=== PATIENT | male | born 1945 ===

== ENCOUNTER 2020-10-24 13:10 | Inpatient (IN) ==
[2020-10-25] MEDS ORDERED: [UNRECOGNIZED DRUG - OTHER] PO PRN (22:33)
[2020-10-25] MEDS: carvediloL 6.25 MG TABLET PO SCH (23:55)
[2020-10-25] MEDS: QUEtiapine Fumarate 25 MG TABLET PO SCH (23:55)
[2020-10-25] MEDS: Melatonin 3 MG TABLET PO SCH (23:55)
[2020-10-26 00:17] LABS: INR 1.4; Prothrombin Time 15.7 Seconds (9.4-12.1)
[2020-10-26 06:03] LABS: Basophils # 0.1 K/mcL (0.0-0.2); Eosinophils # 0.2 K/mcL (0.0-0.6); Eosinophils % 4.5 %; Hematocrit 44.2 % (37.5-50.1); Hemoglobin 14.7 g/dL (12.9-16.9); Immature Granulocytes % 0.4 % (0-4); Lymphocytes # 1.1 K/mcL (0.6-4.6); Lymphocytes % 21.4 %; Mean Corpuscular HGB Conc 33.3 g/dL (31.6-35.5); Mean Corpuscular Volume 90.2 fL (83.0-100.0); Mean Platelet Volume 11.8 fL (9.4-12.4); Monocytes # 0.5 K/mcL (0.0-1.3); Monocytes % 9.6 %; Neutrophils # 3.1 K/mcL (1.6-8.9); Segmented Neutrophils % 63.1 %; White Blood Count 4.9 K/mcL (4.3-11.1)
[2020-10-26 06:58] LABS: Platelet Count 92 K/mcL (140-400)
[2020-10-26 07:12] LABS: BUN/Creatinine Ratio 19 (6-26); Blood Urea Nitrogen 18 mg/dL (8-23); Calcium 9.4 mg/dL (8.6-10.3); Carbon Dioxide 25 mEq/L (23-29); Chloride 102 mEq/L (98-107); Glucose 94 mg/dL (70-105); Osmolality,Calculated 284 (280-300); Potassium 3.6 mEq/L (3.5-5.1); Sodium 136 mEq/L (136-145); eGFR For African Americans > 60 (> 60); eGFR For Non-African Americans > 60 (> 60)
[2020-10-26] MEDS: Sennosides/Docusate Sodium TABLET PO SCH ×2 (09:58→20:57)
[2020-10-26] MEDS: polyethylene glycoL 3350 17 GM POWD.PACK PO SCH (09:59)
[2020-10-26] MEDS: *HR* Enoxaparin 100 MG/ML SYRINGE SQ SCH ×2 (09:59→20:52)
[2020-10-26] MEDS: Cyanocobalamin (B-12) 1,000 MCG TABLET PO SCH (10:00)
[2020-10-26] MEDS: Magnesium Oxide 400 MG TABLET PO SCH (10:00)
[2020-10-26] MEDS: lisinopriL 20 MG TABLET PO SCH (10:00)
[2020-10-26] MEDS: Multivit/Ca/Min/Fe/FA 1 TAB TABLET PO SCH (10:00)
[2020-10-26] MEDS: carvediloL 6.25 MG TABLET PO SCH ×2 (10:00→18:29)
[2020-10-26] MEDS: Fluticasone Propionate Nasal 50 MCG/SPRAY BOTTLE NS SCH (13:37)
[2020-10-26] MEDS: amLODIPine 5 MG TABLET PO SCH (15:41)
[2020-10-26] MEDS ORDERED: *HR* Warfarin 5 MG TABLET PO ONE (18:00)
[2020-10-26] MEDS ORDERED: Warfarin perPT PO PRN (18:00)
[2020-10-26] MEDS ORDERED: *HR* Warfarin 5 MG TABLET PO SCH (18:00)
[2020-10-26] MEDS ORDERED: cloNIDine HCL 0.1 MG TABLET PO ONE (18:37)
[2020-10-26] MEDS ORDERED: carvediloL 6.25 MG TABLET PO ONE (19:15)
[2020-10-26] MEDS: Melatonin 3 MG TABLET PO SCH (20:51)
[2020-10-26] MEDS: QUEtiapine Fumarate 25 MG TABLET PO SCH (20:54)
[2020-10-27 06:49] LABS: Basophils % 0.8 %; Eosinophils # 0.2 K/mcL (0.0-0.6); Eosinophils % 3.6 %; Hemoglobin 14.6 g/dL (12.9-16.9); Immature Granulocytes % 0.4 % (0-4); Lymphocytes # 1.3 K/mcL (0.6-4.6); Lymphocytes % 24.5 %; Mean Corpuscular HGB Conc 33.2 g/dL (31.6-35.5); Mean Corpuscular Hemoglobin 30.1 pg (28.0-33.3); Mean Corpuscular Volume 90.7 fL (83.0-100.0); Mean Platelet Volume 11.3 fL (9.4-12.4); Monocytes # 0.6 K/mcL (0.0-1.3); Monocytes % 11.3 %; Neutrophils # 3.1 K/mcL (1.6-8.9); Platelet Count 179 K/mcL (140-400); Red Blood Count 4.85 M/mcL (4.19-5.50); Segmented Neutrophils % 59.4 %; White Blood Count 5.2 K/mcL (4.3-11.1)
[2020-10-27 06:52] LABS: INR 1.6; Prothrombin Time 17.5 Seconds (9.4-12.1)
[2020-10-27 07:06] LABS: BUN/Creatinine Ratio 23 (6-26); Blood Urea Nitrogen 20 mg/dL (8-23); Calcium 9.4 mg/dL (8.6-10.3); Carbon Dioxide 27 mEq/L (23-29); Chloride 101 mEq/L (98-107); Glucose 106 mg/dL (70-105); Osmolality,Calculated 285 (280-300); Potassium 3.8 mEq/L (3.5-5.1); Sodium 136 mEq/L (136-145); eGFR For African Americans > 60 (> 60); eGFR For Non-African Americans > 60 (> 60)
[2020-10-27] MEDS: Sennosides/Docusate Sodium TABLET PO SCH ×2 (09:24→21:09)
[2020-10-27] MEDS: Multivit/Ca/Min/Fe/FA 1 TAB TABLET PO SCH (09:24)
[2020-10-27] MEDS: Magnesium Oxide 400 MG TABLET PO SCH (09:24)
[2020-10-27] MEDS: carvediloL 6.25 MG TABLET PO SCH ×2 (09:24→16:57)
[2020-10-27] MEDS: lisinopriL 20 MG TABLET PO SCH (09:25)
[2020-10-27] MEDS: amLODIPine 5 MG TABLET PO SCH (09:25)
[2020-10-27] MEDS: polyethylene glycoL 3350 17 GM POWD.PACK PO SCH (09:25)
[2020-10-27] MEDS: *HR* Enoxaparin 100 MG/ML SYRINGE SQ SCH ×2 (09:26→21:08)
[2020-10-27] MEDS: Cyanocobalamin (B-12) 1,000 MCG TABLET PO SCH (09:27)
[2020-10-27] MEDS: Fluticasone Propionate Nasal 50 MCG/SPRAY BOTTLE NS SCH (09:28)
[2020-10-27] MEDS ORDERED: amLODIPine 5 MG TABLET PO ONE (11:17)
[2020-10-27] MEDS ORDERED: *HR* Warfarin 5 MG TABLET PO ONE (18:00)
[2020-10-27] MEDS: Melatonin 3 MG TABLET PO SCH (21:08)
[2020-10-27] MEDS: QUEtiapine Fumarate 25 MG TABLET PO SCH (21:09)
[2020-10-28 05:14] LABS: INR 1.7; Prothrombin Time 19.4 Seconds (9.4-12.1)
[2020-10-28] MEDS: *HR* Enoxaparin 100 MG/ML SYRINGE SQ SCH ×2 (08:37→21:00)
[2020-10-28] MEDS: Multivit/Ca/Min/Fe/FA 1 TAB TABLET PO SCH (08:37)
[2020-10-28] MEDS: Magnesium Oxide 400 MG TABLET PO SCH (08:38)
[2020-10-28] MEDS: Sennosides/Docusate Sodium TABLET PO SCH ×2 (08:38→20:58)
[2020-10-28] MEDS: lisinopriL 20 MG TABLET PO SCH (08:38)
[2020-10-28] MEDS: polyethylene glycoL 3350 17 GM POWD.PACK PO SCH (08:38)
[2020-10-28] MEDS: Cyanocobalamin (B-12) 1,000 MCG TABLET PO SCH (08:38)
[2020-10-28] MEDS: amLODIPine 5 MG TABLET PO SCH (08:38)
[2020-10-28] MEDS: carvediloL 6.25 MG TABLET PO SCH ×2 (08:38→17:20)
[2020-10-28] MEDS: Fluticasone Propionate Nasal 50 MCG/SPRAY BOTTLE NS SCH (08:44)
[2020-10-28] MEDS ORDERED: *HR* Warfarin 5 MG TABLET PO ONE (18:00)
[2020-10-28] MEDS: Melatonin 3 MG TABLET PO SCH (20:59)
[2020-10-28] MEDS: QUEtiapine Fumarate 25 MG TABLET PO SCH (20:59)
[2020-10-29 05:49] LABS: INR 2.1; Prothrombin Time 23.5 Seconds (9.4-12.1)
[2020-10-29] MEDS: *HR* Enoxaparin 100 MG/ML SYRINGE SQ SCH ×2 (09:16→21:30)
[2020-10-29] MEDS: Multivit/Ca/Min/Fe/FA 1 TAB TABLET PO SCH (09:30)
[2020-10-29] MEDS: lisinopriL 20 MG TABLET PO SCH (09:30)
[2020-10-29] MEDS: Sennosides/Docusate Sodium TABLET PO SCH ×2 (09:30→21:30)
[2020-10-29] MEDS: polyethylene glycoL 3350 17 GM POWD.PACK PO SCH (09:30)
[2020-10-29] MEDS: Cyanocobalamin (B-12) 1,000 MCG TABLET PO SCH (09:31)
[2020-10-29] MEDS: carvediloL 6.25 MG TABLET PO SCH ×2 (09:31→17:10)
[2020-10-29] MEDS: Magnesium Oxide 400 MG TABLET PO SCH (09:31)
[2020-10-29] MEDS: amLODIPine 5 MG TABLET PO SCH (09:31)
[2020-10-29] MEDS: Fluticasone Propionate Nasal 50 MCG/SPRAY BOTTLE NS SCH (09:32)
[2020-10-29] MEDS ORDERED: *HR* Warfarin 5 MG TABLET PO ONE (18:00)
[2020-10-29] MEDS: QUEtiapine Fumarate 25 MG TABLET PO SCH (21:30)
[2020-10-29] MEDS: Melatonin 3 MG TABLET PO SCH (21:30)
[2020-10-30 05:23] LABS: INR 2.6
[2020-10-30] MEDS: Cyanocobalamin (B-12) 1,000 MCG TABLET PO SCH (09:03)
[2020-10-30] MEDS: Magnesium Oxide 400 MG TABLET PO SCH (09:03)
[2020-10-30] MEDS: amLODIPine 5 MG TABLET PO SCH (09:03)
[2020-10-30] MEDS: Sennosides/Docusate Sodium TABLET PO SCH ×2 (09:04→20:34)
[2020-10-30] MEDS: Fluticasone Propionate Nasal 50 MCG/SPRAY BOTTLE NS SCH (09:04)
[2020-10-30] MEDS: *HR* Enoxaparin 100 MG/ML SYRINGE SQ SCH (09:04)
[2020-10-30] MEDS: Multivit/Ca/Min/Fe/FA 1 TAB TABLET PO SCH (09:04)
[2020-10-30] MEDS: lisinopriL 20 MG TABLET PO SCH (09:04)
[2020-10-30] MEDS: carvediloL 6.25 MG TABLET PO SCH ×2 (09:04→17:48)
[2020-10-30] MEDS: polyethylene glycoL 3350 17 GM POWD.PACK PO SCH (09:07)
[2020-10-30] MEDS ORDERED: *HR* Warfarin 1 MG TABLET PO ONE (18:00)
[2020-10-30] MEDS: QUEtiapine Fumarate 25 MG TABLET PO SCH (20:34)
[2020-10-30] MEDS: Melatonin 3 MG TABLET PO SCH (20:34)
[2020-10-31 04:55] LABS: Basophils # 0.1 K/mcL (0.0-0.2); Basophils % 1.1 %; Eosinophils # 0.2 K/mcL (0.0-0.6); Eosinophils % 3.8 %; Hematocrit 46.9 % (37.5-50.1); Hemoglobin 15.2 g/dL (12.9-16.9); Immature Granulocytes % 0.5 % (0-4); Lymphocytes # 1.4 K/mcL (0.6-4.6); Lymphocytes % 32.4 %; Mean Corpuscular HGB Conc 32.4 g/dL (31.6-35.5); Mean Corpuscular Hemoglobin 30.3 pg (28.0-33.3); Mean Corpuscular Volume 93.6 fL (83.0-100.0); Mean Platelet Volume 11.4 fL (9.4-12.4); Monocytes # 0.6 K/mcL (0.0-1.3); Monocytes % 13.3 %; Neutrophils # 2.2 K/mcL (1.6-8.9); Platelet Count 200 K/mcL (140-400); Red Blood Count 5.01 M/mcL (4.19-5.50); Segmented Neutrophils % 48.9 %; White Blood Count 4.4 K/mcL (4.3-11.1)
[2020-10-31 04:59] LABS: INR 2.5; Prothrombin Time 28.1 Seconds (9.4-12.1)
[2020-10-31 05:12] LABS: BUN/Creatinine Ratio 28 (6-26); Blood Urea Nitrogen 35 mg/dL (8-23); Calcium 9.8 mg/dL (8.6-10.3); Carbon Dioxide 27 mEq/L (23-29); Chloride 102 mEq/L (98-107); Glucose 92 mg/dL (70-105); Osmolality,Calculated 292 (280-300); Potassium 4.3 mEq/L (3.5-5.1); Sodium 137 mEq/L (136-145); eGFR For African Americans > 60 (> 60); eGFR For Non-African Americans 56 (> 60)
[2020-10-31] MEDS: Cyanocobalamin (B-12) 1,000 MCG TABLET PO SCH (07:59)
[2020-10-31] MEDS: Sennosides/Docusate Sodium TABLET PO SCH ×2 (07:59→22:05)
[2020-10-31] MEDS: Multivit/Ca/Min/Fe/FA 1 TAB TABLET PO SCH (08:00)
[2020-10-31] MEDS: polyethylene glycoL 3350 17 GM POWD.PACK PO SCH (08:00)
[2020-10-31] MEDS: amLODIPine 5 MG TABLET PO SCH (08:00)
[2020-10-31] MEDS: lisinopriL 20 MG TABLET PO SCH (08:00)
[2020-10-31] MEDS: Magnesium Oxide 400 MG TABLET PO SCH (08:00)
[2020-10-31] MEDS: carvediloL 6.25 MG TABLET PO SCH ×2 (08:00→18:09)
[2020-10-31] MEDS: Fluticasone Propionate Nasal 50 MCG/SPRAY BOTTLE NS SCH (08:01)
[2020-10-31] MEDS: Mag Hydrox/Al Hydrox/Simeth 30 ML UDC PO PRN (10:53)
[2020-10-31] MEDS ORDERED: *HR* Warfarin 4 MG TABLET PO ONE (18:00)
[2020-10-31] MEDS: QUEtiapine Fumarate 100 MG TABLET PO SCH (22:05)
[2020-10-31] MEDS: levoFLOXacin 750 MG TABLET PO SCH (22:05)
[2020-11-01 06:23] LABS: INR 2.3
[2020-11-01] MEDS: Sennosides/Docusate Sodium TABLET PO SCH ×2 (08:33→20:52)
[2020-11-01] MEDS: amLODIPine 5 MG TABLET PO SCH (08:33)
[2020-11-01] MEDS: Multivit/Ca/Min/Fe/FA 1 TAB TABLET PO SCH (08:33)
[2020-11-01] MEDS: lisinopriL 20 MG TABLET PO SCH (08:33)
[2020-11-01] MEDS: carvediloL 6.25 MG TABLET PO SCH ×2 (08:33→16:45)
[2020-11-01] MEDS: Magnesium Oxide 400 MG TABLET PO SCH (08:33)
[2020-11-01] MEDS: polyethylene glycoL 3350 17 GM POWD.PACK PO SCH (08:34)
[2020-11-01] MEDS: Fluticasone Propionate Nasal 50 MCG/SPRAY BOTTLE NS SCH (08:34)
[2020-11-01] MEDS: Cyanocobalamin (B-12) 1,000 MCG TABLET PO SCH (08:34)
[2020-11-01] MEDS ORDERED: *HR* Warfarin 4 MG TABLET PO ONE (18:00)
[2020-11-01] MEDS: QUEtiapine Fumarate 100 MG TABLET PO SCH (20:52)
[2020-11-01] MEDS: levoFLOXacin 750 MG TABLET PO SCH (20:52)
[2020-11-02 08:14] LABS: INR 2.3; Prothrombin Time 25.4 Seconds (9.4-12.1)
[2020-11-02 08:16] LABS: Basophils # 0.1 K/mcL (0.0-0.2); Basophils % 1.1 %; Eosinophils # 0.2 K/mcL (0.0-0.6); Eosinophils % 4.1 %; Hematocrit 48.4 % (37.5-50.1); Hemoglobin 15.7 g/dL (12.9-16.9); Immature Granulocytes % 0.5 % (0-4); Mean Corpuscular HGB Conc 32.4 g/dL (31.6-35.5); Mean Corpuscular Hemoglobin 30.3 pg (28.0-33.3); Mean Corpuscular Volume 93.3 fL (83.0-100.0); Mean Platelet Volume 10.6 fL (9.4-12.4); Monocytes # 0.5 K/mcL (0.0-1.3); Neutrophils # 2.7 K/mcL (1.6-8.9); Platelet Count 216 K/mcL (140-400); Red Blood Count 5.19 M/mcL (4.19-5.50); Red Cell Distribution Width 15.1 % (11.5-14.5); Segmented Neutrophils % 60.3 %; White Blood Count 4.4 K/mcL (4.3-11.1)
[2020-11-02 08:29] LABS: Albumin 3.9 g/dL (3.5-5.7); Albumin/Globulin Ratio 1.6 (1.1-2.2); Bilirubin,Total 0.5 mg/dL (0.3-1.0); Calcium 10.1 mg/dL (8.6-10.3); Globulin 2.5 g/dL (2.4-3.5); Potassium 4.4 mEq/L (3.5-5.1); Total Protein 6.4 g/dL (6.4-8.9)
[2020-11-02] MEDS ORDERED: 0.9 % Sodium Chloride 1,000 ML IV ONE (08:50)
[2020-11-02] MEDS ORDERED: amLODIPine 5 MG TABLET PO SCH (09:01)
[2020-11-02] MEDS: Cyanocobalamin (B-12) 1,000 MCG TABLET PO SCH (09:59)
[2020-11-02] MEDS: Sennosides/Docusate Sodium TABLET PO SCH ×2 (09:59→20:39)
[2020-11-02] MEDS: carvediloL 6.25 MG TABLET PO SCH ×2 (09:59→17:11)
[2020-11-02] MEDS: Fluticasone Propionate Nasal 50 MCG/SPRAY BOTTLE NS SCH (09:59)
[2020-11-02] MEDS: lisinopriL 20 MG TABLET PO SCH (09:59)
[2020-11-02] MEDS: Multivit/Ca/Min/Fe/FA 1 TAB TABLET PO SCH (09:59)
[2020-11-02] MEDS: polyethylene glycoL 3350 17 GM POWD.PACK PO SCH (09:59)
[2020-11-02] MEDS: cefTRIAXone 1,000 MG in Water for inj. (sterile) 10 ML IVP SCH (11:58)
[2020-11-02] MEDS: Magnesium Oxide 400 MG TABLET PO SCH (11:59)
[2020-11-02] MEDS: amLODIPine 5 MG TABLET PO SCH (12:26)
[2020-11-02] MEDS ORDERED: *HR* Warfarin 4 MG TABLET PO ONE (18:00)
[2020-11-02 20:22] LABS: Hepatitis B Surface Antigen Nonreactive (Nonreactive)
[2020-11-02] MEDS: QUEtiapine Fumarate 100 MG TABLET PO SCH (20:39)
[2020-11-02 20:51] LABS: Hepatitis B Core IgM Nonreactive (Nonreactive)
[2020-11-02 20:52] LABS: Hepatitis A Antibody IgM Nonreactive (Nonreactive); Hepatitis C Virus Antibody Nonreactive (Nonreactive)
[2020-11-03 08:41] LABS: Basophils # 0.1 K/mcL (0.0-0.2); Basophils % 1.3 %; Eosinophils # 0.2 K/mcL (0.0-0.6); Eosinophils % 3.8 %; Hematocrit 45.6 % (37.5-50.1); Hemoglobin 15.1 g/dL (12.9-16.9); Immature Granulocytes % 0.4 % (0-4); Lymphocytes # 1.1 K/mcL (0.6-4.6); Lymphocytes % 23.8 %; Mean Corpuscular HGB Conc 33.1 g/dL (31.6-35.5); Mean Corpuscular Hemoglobin 30.8 pg (28.0-33.3); Mean Corpuscular Volume 92.9 fL (83.0-100.0); Mean Platelet Volume 10.8 fL (9.4-12.4); Monocytes # 0.5 K/mcL (0.0-1.3); Monocytes % 10.2 %; Neutrophils # 2.7 K/mcL (1.6-8.9); Platelet Count 191 K/mcL (140-400); Red Blood Count 4.91 M/mcL (4.19-5.50); Red Cell Distribution Width 15.1 % (11.5-14.5); Segmented Neutrophils % 60.5 %; White Blood Count 4.5 K/mcL (4.3-11.1)
[2020-11-03 09:08] LABS: INR 2.1; Prothrombin Time 23.7 Seconds (9.4-12.1)
[2020-11-03] MEDS: carvediloL 6.25 MG TABLET PO SCH ×2 (09:27→17:36)
[2020-11-03] MEDS: lisinopriL 20 MG TABLET PO SCH (09:27)
[2020-11-03] MEDS: Sennosides/Docusate Sodium TABLET PO SCH ×2 (09:27→20:06)
[2020-11-03] MEDS: Magnesium Oxide 400 MG TABLET PO SCH (09:27)
[2020-11-03] MEDS: Multivit/Ca/Min/Fe/FA 1 TAB TABLET PO SCH (09:27)
[2020-11-03] MEDS: Cyanocobalamin (B-12) 1,000 MCG TABLET PO SCH (09:27)
[2020-11-03] MEDS: polyethylene glycoL 3350 17 GM POWD.PACK PO SCH (09:28)
[2020-11-03] MEDS: cefTRIAXone 1,000 MG in Water for inj. (sterile) 10 ML IVP SCH (09:28)
[2020-11-03] MEDS: Fluticasone Propionate Nasal 50 MCG/SPRAY BOTTLE NS SCH (09:38)
[2020-11-03 14:22] LABS: Albumin 3.8 g/dL (3.5-5.7); Albumin/Globulin Ratio 1.7 (1.1-2.2); Bilirubin,Total 0.4 mg/dL (0.3-1.0); Calcium 9.9 mg/dL (8.6-10.3); Globulin 2.3 g/dL (2.4-3.5); Potassium 4.4 mEq/L (3.5-5.1); Total Protein 6.1 g/dL (6.4-8.9)
[2020-11-03] MEDS ORDERED: *HR* Warfarin 5 MG TABLET PO ONE (18:00)
[2020-11-03] MEDS: QUEtiapine Fumarate 100 MG TABLET PO SCH (20:06)
[2020-11-04 05:02] LABS: Basophils # 0.1 K/mcL (0.0-0.2); Basophils % 1.1 %; Eosinophils # 0.2 K/mcL (0.0-0.6); Eosinophils % 3.9 %; Hematocrit 45.1 % (37.5-50.1); Hemoglobin 14.5 g/dL (12.9-16.9); Immature Granulocytes % 0.4 % (0-4); Lymphocytes # 1.5 K/mcL (0.6-4.6); Lymphocytes % 32.1 %; Mean Corpuscular HGB Conc 32.2 g/dL (31.6-35.5); Mean Corpuscular Hemoglobin 30.2 pg (28.0-33.3); Mean Platelet Volume 10.9 fL (9.4-12.4); Monocytes # 0.5 K/mcL (0.0-1.3); Monocytes % 10.7 %; Neutrophils # 2.4 K/mcL (1.6-8.9); Platelet Count 191 K/mcL (140-400); Segmented Neutrophils % 51.8 %; White Blood Count 4.6 K/mcL (4.3-11.1)
[2020-11-04 05:05] LABS: INR 2.1; Prothrombin Time 23.2 Seconds (9.4-12.1)
[2020-11-04 05:16] LABS: Alanine Aminotransferase 66 Units/L (7-52); Albumin 3.6 g/dL (3.5-5.7); Albumin/Globulin Ratio 1.6 (1.1-2.2); Alkaline Phosphatase 82 Units/L (34-104); Aspartate Amino Transferase 32 Units/L (13-39); BUN/Creatinine Ratio 25 (6-26); Bilirubin,Direct 0.1 mg/dL (0.0-0.2); Bilirubin,Indirect 0.3 mg/dL (0.0-1.0); Bilirubin,Total 0.4 mg/dL (0.3-1.0); Blood Urea Nitrogen 32 mg/dL (8-23); Calcium 9.8 mg/dL (8.6-10.3); Carbon Dioxide 25 mEq/L (23-29); Chloride 105 mEq/L (98-107); Globulin 2.2 g/dL (2.4-3.5); Glucose 100 mg/dL (70-105); Osmolality,Calculated 291 (280-300); Sodium 137 mEq/L (136-145); Total Protein 5.8 g/dL (6.4-8.9); eGFR For African Americans > 60 (> 60); eGFR For Non-African Americans 56 (> 60)
[2020-11-04] MEDS: cefTRIAXone 1,000 MG in Water for inj. (sterile) 10 ML IVP SCH (08:23)
[2020-11-04] MEDS: carvediloL 6.25 MG TABLET PO SCH ×2 (08:24→17:03)
[2020-11-04] MEDS: Fluticasone Propionate Nasal 50 MCG/SPRAY BOTTLE NS SCH (08:24)
[2020-11-04] MEDS: lisinopriL 20 MG TABLET PO SCH (08:24)
[2020-11-04] MEDS: Multivit/Ca/Min/Fe/FA 1 TAB TABLET PO SCH (08:24)
[2020-11-04] MEDS: Cyanocobalamin (B-12) 1,000 MCG TABLET PO SCH (08:24)
[2020-11-04] MEDS: Magnesium Oxide 400 MG TABLET PO SCH (08:24)
[2020-11-04] MEDS: Sennosides/Docusate Sodium TABLET PO SCH ×2 (08:24→20:10)
[2020-11-04] MEDS: polyethylene glycoL 3350 17 GM POWD.PACK PO SCH (08:24)
[2020-11-04 14:38] LABS: Bilirubin,Urine Negative (Negative); Blood,Urine Negative (Negative); Clarity,Urine Clear (Clear); Color,Urine Yellow (Yellow); Glucose,Urine (UA) Normal (Normal); Ketones,Urine Negative (Negative); Leukocyte Esterase,Urine Negative (Negative); Nitrite,Urine Negative (Negative); Protein,Urine Trace mg/dL (Neg-Trace); Specific Gravity,Urine 1.025 (1.010-1.025); Urobilinogen,Urine Normal (Normal)
[2020-11-04] MEDS ORDERED: *HR* Warfarin 5 MG TABLET PO ONE (18:00)
[2020-11-04] MEDS: QUEtiapine Fumarate 100 MG TABLET PO SCH (20:10)
[2020-11-05 05:56] LABS: Basophils # 0.1 K/mcL (0.0-0.2); Basophils % 1.1 %; Eosinophils # 0.2 K/mcL (0.0-0.6); Eosinophils % 4.5 %; Hematocrit 44.6 % (37.5-50.1); Hemoglobin 14.8 g/dL (12.9-16.9); INR 2.2; Immature Granulocytes % 0.4 % (0-4); Lymphocytes # 1.6 K/mcL (0.6-4.6); Lymphocytes % 33.7 %; Mean Corpuscular HGB Conc 33.2 g/dL (31.6-35.5); Mean Corpuscular Hemoglobin 30.6 pg (28.0-33.3); Mean Corpuscular Volume 92.3 fL (83.0-100.0); Mean Platelet Volume 11.6 fL (9.4-12.4); Monocytes # 0.5 K/mcL (0.0-1.3); Neutrophils # 2.4 K/mcL (1.6-8.9); Platelet Count 193 K/mcL (140-400); Prothrombin Time 24.3 Seconds (9.4-12.1); Red Blood Count 4.83 M/mcL (4.19-5.50); Red Cell Distribution Width 14.9 % (11.5-14.5); Segmented Neutrophils % 50.3 %; White Blood Count 4.7 K/mcL (4.3-11.1)
[2020-11-05 06:08] LABS: Alanine Aminotransferase 63 Units/L (7-52); Albumin 3.6 g/dL (3.5-5.7); Albumin/Globulin Ratio 1.6 (1.1-2.2); Alkaline Phosphatase 84 Units/L (34-104); Aspartate Amino Transferase 35 Units/L (13-39); BUN/Creatinine Ratio 22 (6-26); Bilirubin,Total 0.5 mg/dL (0.3-1.0); Blood Urea Nitrogen 28 mg/dL (8-23); Calcium 9.9 mg/dL (8.6-10.3); Carbon Dioxide 25 mEq/L (23-29); Chloride 104 mEq/L (98-107); Globulin 2.2 g/dL (2.4-3.5); Glucose 90 mg/dL (70-105); Osmolality,Calculated 289 (280-300); Potassium 4.2 mEq/L (3.5-5.1); Sodium 137 mEq/L (136-145); Total Protein 5.8 g/dL (6.4-8.9); eGFR For African Americans > 60 (> 60); eGFR For Non-African Americans 55 (> 60)
[2020-11-05] MEDS: carvediloL 6.25 MG TABLET PO SCH ×2 (09:03→16:08)
[2020-11-05] MEDS: Fluticasone Propionate Nasal 50 MCG/SPRAY BOTTLE NS SCH (09:04)
[2020-11-05] MEDS: Magnesium Oxide 400 MG TABLET PO SCH (09:04)
[2020-11-05] MEDS: polyethylene glycoL 3350 17 GM POWD.PACK PO SCH (09:04)
[2020-11-05] MEDS: Sennosides/Docusate Sodium TABLET PO SCH ×2 (09:04→23:36)
[2020-11-05] MEDS: Multivit/Ca/Min/Fe/FA 1 TAB TABLET PO SCH (09:04)
[2020-11-05] MEDS: cefTRIAXone 1,000 MG in Water for inj. (sterile) 10 ML IVP SCH (09:04)
[2020-11-05] MEDS: lisinopriL 20 MG TABLET PO SCH (09:04)
[2020-11-05] MEDS: Cyanocobalamin (B-12) 1,000 MCG TABLET PO SCH (09:04)
[2020-11-05] MEDS ORDERED: *HR* Warfarin 5 MG TABLET PO ONE (18:00)
[2020-11-05] MEDS ORDERED: 0.9 % Sodium Chloride 1,000 ML IV ONE (19:01)
[2020-11-05] MEDS ORDERED: 0.9 % Sodium Chloride 1,000 ML ONE (19:03)
[2020-11-05] MEDS: QUEtiapine Fumarate 100 MG TABLET PO SCH (23:36)
[2020-11-06 05:15] LABS: INR 2.3
[2020-11-06 05:26] LABS: Alanine Aminotransferase 51 Units/L (7-52); Albumin 3.3 g/dL (3.5-5.7); Albumin/Globulin Ratio 1.7 (1.1-2.2); Alkaline Phosphatase 72 Units/L (34-104); Aspartate Amino Transferase 28 Units/L (13-39); BUN/Creatinine Ratio 25 (6-26); Bilirubin,Total 0.4 mg/dL (0.3-1.0); Blood Urea Nitrogen 29 mg/dL (8-23); Calcium 9.3 mg/dL (8.6-10.3); Carbon Dioxide 24 mEq/L (23-29); Chloride 107 mEq/L (98-107); Globulin 1.9 g/dL (2.4-3.5); Glucose 91 mg/dL (70-105); Osmolality,Calculated 291 (280-300); Potassium 3.9 mEq/L (3.5-5.1); Sodium 138 mEq/L (136-145); Total Protein 5.2 g/dL (6.4-8.9); eGFR For African Americans > 60 (> 60); eGFR For Non-African Americans > 60 (> 60)
[2020-11-06] MEDS: cefTRIAXone 1,000 MG in Water for inj. (sterile) 10 ML IVP SCH (08:59)
[2020-11-06] MEDS: polyethylene glycoL 3350 17 GM POWD.PACK PO SCH (08:59)
[2020-11-06] MEDS: Sennosides/Docusate Sodium TABLET PO SCH ×2 (09:00→20:19)
[2020-11-06] MEDS: Cyanocobalamin (B-12) 1,000 MCG TABLET PO SCH (09:01)
[2020-11-06] MEDS: lisinopriL 20 MG TABLET PO SCH (09:01)
[2020-11-06] MEDS: carvediloL 6.25 MG TABLET PO SCH ×2 (09:01→17:24)
[2020-11-06] MEDS: Fluticasone Propionate Nasal 50 MCG/SPRAY BOTTLE NS SCH (09:01)
[2020-11-06] MEDS: Magnesium Oxide 400 MG TABLET PO SCH (09:01)
[2020-11-06] MEDS: Multivit/Ca/Min/Fe/FA 1 TAB TABLET PO SCH (09:01)
[2020-11-06] MEDS ORDERED: *HR* Warfarin 5 MG TABLET PO ONE (18:00)
[2020-11-06] MEDS: QUEtiapine Fumarate 100 MG TABLET PO SCH (20:19)
[2020-11-07 04:56] LABS: Prothrombin Time 22.4 Seconds (9.4-12.1)
[2020-11-07] MEDS: cefTRIAXone 1,000 MG in Water for inj. (sterile) 10 ML IVP SCH (08:11)
[2020-11-07] MEDS: Cyanocobalamin (B-12) 1,000 MCG TABLET PO SCH (08:11)
[2020-11-07] MEDS: carvediloL 6.25 MG TABLET PO SCH ×2 (08:11→17:13)
[2020-11-07] MEDS: Sennosides/Docusate Sodium TABLET PO SCH ×2 (08:11→21:07)
[2020-11-07] MEDS: Fluticasone Propionate Nasal 50 MCG/SPRAY BOTTLE NS SCH (08:11)
[2020-11-07] MEDS: Magnesium Oxide 400 MG TABLET PO SCH (08:11)
[2020-11-07] MEDS: Multivit/Ca/Min/Fe/FA 1 TAB TABLET PO SCH (08:11)
[2020-11-07] MEDS: lisinopriL 20 MG TABLET PO SCH (08:11)
[2020-11-07] MEDS: polyethylene glycoL 3350 17 GM POWD.PACK PO SCH (08:22)
[2020-11-07] MEDS ORDERED: *HR* Warfarin 7.5 MG TABLET PO ONE (18:00)
[2020-11-07] MEDS: QUEtiapine Fumarate 100 MG TABLET PO SCH (21:07)
[2020-11-08 04:42] LABS: Prothrombin Time 21.8 Seconds (9.4-12.1)
[2020-11-08] MEDS: carvediloL 6.25 MG TABLET PO SCH ×2 (08:38→17:49)
[2020-11-08] MEDS: Multivit/Ca/Min/Fe/FA 1 TAB TABLET PO SCH (08:38)
[2020-11-08] MEDS: Sennosides/Docusate Sodium TABLET PO SCH ×2 (08:38→21:38)
[2020-11-08] MEDS: lisinopriL 20 MG TABLET PO SCH (08:38)
[2020-11-08] MEDS: Cyanocobalamin (B-12) 1,000 MCG TABLET PO SCH (08:38)
[2020-11-08] MEDS: Magnesium Oxide 400 MG TABLET PO SCH (08:38)
[2020-11-08] MEDS: Fluticasone Propionate Nasal 50 MCG/SPRAY BOTTLE NS SCH (08:39)
[2020-11-08] MEDS: polyethylene glycoL 3350 17 GM POWD.PACK PO SCH (08:39)
[2020-11-08 10:54] LABS: Influenza A PCR Negative (Negative); Influenza B PCR Negative (Negative); Resp. Syncytial Virus PCR Negative (Negative)
[2020-11-08 11:01] LABS: SARS-CoV-2 by PCR (In House) Negative (Negative)
[2020-11-08 15:09] LABS: BUN/Creatinine Ratio 14 (6-26); Blood Urea Nitrogen 17 mg/dL (8-23); Calcium 10.3 mg/dL (8.6-10.3); Carbon Dioxide 28 mEq/L (23-29); Chloride 102 mEq/L (98-107); Glucose 97 mg/dL (70-105); Osmolality,Calculated 285 (280-300); Potassium 4.5 mEq/L (3.5-5.1); Sodium 137 mEq/L (136-145); eGFR For African Americans > 60 (> 60); eGFR For Non-African Americans 56 (> 60)
[2020-11-08] MEDS ORDERED: *HR* Warfarin 3 MG TABLET PO ONE (18:00)
[2020-11-08] MEDS: QUEtiapine Fumarate 100 MG TABLET PO SCH (21:34)
[2020-11-09] MEDS: Benzonatate 100 MG CAPSULE PO PRN ×2 (02:29→20:48)
[2020-11-09] MEDS: lisinopriL 20 MG TABLET PO SCH (09:19)
[2020-11-09] MEDS: Magnesium Oxide 400 MG TABLET PO SCH (09:19)
[2020-11-09] MEDS: carvediloL 6.25 MG TABLET PO SCH ×2 (09:20→16:45)
[2020-11-09] MEDS: Sennosides/Docusate Sodium TABLET PO SCH ×2 (09:20→20:49)
[2020-11-09] MEDS: Multivit/Ca/Min/Fe/FA 1 TAB TABLET PO SCH (09:20)
[2020-11-09] MEDS: Cyanocobalamin (B-12) 1,000 MCG TABLET PO SCH (09:20)
[2020-11-09] MEDS: polyethylene glycoL 3350 17 GM POWD.PACK PO SCH (09:21)
[2020-11-09] MEDS: Fluticasone Propionate Nasal 50 MCG/SPRAY BOTTLE NS SCH (09:22)
[2020-11-09 10:26] LABS: INR 2.3; Prothrombin Time 25.5 Seconds (9.4-12.1)
[2020-11-09] MEDS ORDERED: *HR* Warfarin 3 MG TABLET PO ONE (18:00)
[2020-11-09] MEDS: QUEtiapine Fumarate 100 MG TABLET PO SCH (20:49)
[2020-11-10 08:14] LABS: INR 2.9; Prothrombin Time 31.7 Seconds (9.4-12.1)
[2020-11-10] MEDS: carvediloL 6.25 MG TABLET PO SCH ×2 (09:07→16:26)
[2020-11-10] MEDS: Multivit/Ca/Min/Fe/FA 1 TAB TABLET PO SCH (09:07)
[2020-11-10] MEDS: polyethylene glycoL 3350 17 GM POWD.PACK PO SCH (09:07)
[2020-11-10] MEDS: Magnesium Oxide 400 MG TABLET PO SCH (09:07)
[2020-11-10] MEDS: Fluticasone Propionate Nasal 50 MCG/SPRAY BOTTLE NS SCH (09:07)
[2020-11-10] MEDS: Sennosides/Docusate Sodium TABLET PO SCH ×2 (09:07→20:20)
[2020-11-10] MEDS: Cyanocobalamin (B-12) 1,000 MCG TABLET PO SCH (09:07)
[2020-11-10] MEDS: lisinopriL 20 MG TABLET PO SCH (09:07)
[2020-11-10 16:05] LABS: Bilirubin,Urine Negative (Negative); Blood,Urine Trace-intact (Negative); Clarity,Urine Clear (Clear); Color,Urine Yellow (Yellow); Glucose,Urine (UA) Normal (Normal); Ketones,Urine Negative (Negative); Leukocyte Esterase,Urine Negative (Negative); Nitrite,Urine Negative (Negative); Protein,Urine Negative (Neg-Trace); Specific Gravity,Urine 1.015 (1.010-1.025); Urobilinogen,Urine Normal (Normal)
[2020-11-10 16:10] LABS: Bacteria,Urine Few per hpf (None-Few); WBC,Urine 0-3 per hpf (0-3)
[2020-11-10] MEDS ORDERED: *HR* Warfarin 4 MG TABLET PO ONE (18:00)
[2020-11-10] MEDS: QUEtiapine Fumarate 100 MG TABLET PO SCH (20:20)
[2020-11-11 08:18] LABS: Hematocrit 42.6 % (37.5-50.1); Hemoglobin 14.3 g/dL (12.9-16.9); Mean Corpuscular HGB Conc 33.6 g/dL (31.6-35.5); Mean Corpuscular Hemoglobin 30.4 pg (28.0-33.3); Mean Corpuscular Volume 90.4 fL (83.0-100.0); Mean Platelet Volume 11.2 fL (9.4-12.4); Platelet Count 120 K/mcL (140-400); Red Blood Count 4.71 M/mcL (4.19-5.50); Red Cell Distribution Width 14.6 % (11.5-14.5); White Blood Count 4.1 K/mcL (4.3-11.1)
[2020-11-11 08:27] LABS: INR 2.2; Prothrombin Time 24.4 Seconds (9.4-12.1)
[2020-11-11 08:36] LABS: Alanine Aminotransferase 58 Units/L (7-52); Albumin 3.6 g/dL (3.5-5.7); Albumin/Globulin Ratio 1.4 (1.1-2.2); Alkaline Phosphatase 76 Units/L (34-104); Aspartate Amino Transferase 34 Units/L (13-39); BUN/Creatinine Ratio 16 (6-26); Bilirubin,Total 0.4 mg/dL (0.3-1.0); Blood Urea Nitrogen 19 mg/dL (8-23); Calcium 9.7 mg/dL (8.6-10.3); Carbon Dioxide 24 mEq/L (23-29); Chloride 107 mEq/L (98-107); Globulin 2.5 g/dL (2.4-3.5); Glucose 106 mg/dL (70-105); Osmolality,Calculated 289 (280-300); Potassium 4.3 mEq/L (3.5-5.1); Sodium 138 mEq/L (136-145); Total Protein 6.1 g/dL (6.4-8.9); eGFR For African Americans > 60 (> 60); eGFR For Non-African Americans 59 (> 60)
[2020-11-11] MEDS: Cyanocobalamin (B-12) 1,000 MCG TABLET PO SCH (09:02)
[2020-11-11] MEDS: Magnesium Oxide 400 MG TABLET PO SCH (09:02)
[2020-11-11] MEDS: Fluticasone Propionate Nasal 50 MCG/SPRAY BOTTLE NS SCH (09:02)
[2020-11-11] MEDS: carvediloL 6.25 MG TABLET PO SCH ×2 (09:02→17:16)
[2020-11-11] MEDS: lisinopriL 20 MG TABLET PO SCH (09:02)
[2020-11-11] MEDS: Multivit/Ca/Min/Fe/FA 1 TAB TABLET PO SCH (09:02)
[2020-11-11] MEDS: Sennosides/Docusate Sodium TABLET PO SCH ×2 (09:03→19:57)
[2020-11-11] MEDS: polyethylene glycoL 3350 17 GM POWD.PACK PO SCH (09:03)
[2020-11-11] MEDS ORDERED: *HR* Warfarin 5 MG TABLET PO ONE (18:00)
[2020-11-11] MEDS: Benzonatate 100 MG CAPSULE PO PRN (19:53)
[2020-11-11] MEDS: QUEtiapine Fumarate 100 MG TABLET PO SCH (19:53)
[2020-11-11] MEDS: Mag Hydrox/Al Hydrox/Simeth 30 ML UDC PO PRN (20:03)
[2020-11-12 05:10] LABS: INR 2.3; Prothrombin Time 25.3 Seconds (9.4-12.1)
[2020-11-12] MEDS: Benzonatate 100 MG CAPSULE PO PRN (05:31)
[2020-11-12] MEDS: lisinopriL 20 MG TABLET PO SCH (08:13)
[2020-11-12] MEDS: Cyanocobalamin (B-12) 1,000 MCG TABLET PO SCH (08:13)
[2020-11-12] MEDS: Multivit/Ca/Min/Fe/FA 1 TAB TABLET PO SCH (08:14)
[2020-11-12] MEDS: Magnesium Oxide 400 MG TABLET PO SCH (08:14)
[2020-11-12] MEDS: Sennosides/Docusate Sodium TABLET PO SCH ×2 (08:14→20:34)
[2020-11-12] MEDS: Fluticasone Propionate Nasal 50 MCG/SPRAY BOTTLE NS SCH (08:14)
[2020-11-12] MEDS: carvediloL 6.25 MG TABLET PO SCH ×2 (08:14→16:44)
[2020-11-12] MEDS: polyethylene glycoL 3350 17 GM POWD.PACK PO SCH (08:14)
[2020-11-12] MEDS ORDERED: SUMAtriptan succinate 25 MG TABLET PO ONE (11:52)
[2020-11-12] MEDS ORDERED: *HR* Warfarin 3 MG TABLET PO ONE (18:00)
[2020-11-12] MEDS: QUEtiapine Fumarate 100 MG TABLET PO SCH (20:32)
[2020-11-13 04:48] LABS: INR 2.3; Prothrombin Time 25.9 Seconds (9.4-12.1)
[2020-11-13] MEDS: carvediloL 6.25 MG TABLET PO SCH ×2 (08:55→17:37)
[2020-11-13] MEDS: Magnesium Oxide 400 MG TABLET PO SCH (08:56)
[2020-11-13] MEDS: Sennosides/Docusate Sodium TABLET PO SCH ×2 (08:56→20:20)
[2020-11-13] MEDS: Fluticasone Propionate Nasal 50 MCG/SPRAY BOTTLE NS SCH (08:56)
[2020-11-13] MEDS: Multivit/Ca/Min/Fe/FA 1 TAB TABLET PO SCH (08:56)
[2020-11-13] MEDS: polyethylene glycoL 3350 17 GM POWD.PACK PO SCH (08:56)
[2020-11-13] MEDS: Cyanocobalamin (B-12) 1,000 MCG TABLET PO SCH (08:56)
[2020-11-13] MEDS: lisinopriL 20 MG TABLET PO SCH (08:57)
[2020-11-13] MEDS ORDERED: *HR* Warfarin 3 MG TABLET PO ONE (18:00)
[2020-11-13] MEDS: QUEtiapine Fumarate 100 MG TABLET PO SCH (20:20)
[2020-11-14 04:49] LABS: INR 2.1; Prothrombin Time 23.8 Seconds (9.4-12.1)
[2020-11-14] MEDS: carvediloL 6.25 MG TABLET PO SCH ×2 (08:53→16:55)
[2020-11-14] MEDS: Fluticasone Propionate Nasal 50 MCG/SPRAY BOTTLE NS SCH ×2 (08:53→20:13)
[2020-11-14] MEDS: Sennosides/Docusate Sodium TABLET PO SCH ×2 (09:00→20:12)
[2020-11-14] MEDS: Multivit/Ca/Min/Fe/FA 1 TAB TABLET PO SCH (09:00)
[2020-11-14] MEDS: Magnesium Oxide 400 MG TABLET PO SCH (09:00)
[2020-11-14] MEDS: polyethylene glycoL 3350 17 GM POWD.PACK PO SCH (09:00)
[2020-11-14] MEDS: Cyanocobalamin (B-12) 1,000 MCG TABLET PO SCH (09:00)
[2020-11-14] MEDS: lisinopriL 20 MG TABLET PO SCH (09:01)
[2020-11-14] MEDS ORDERED: *HR* Warfarin 7.5 MG TABLET PO ONE (18:00)
[2020-11-14] MEDS: Benzonatate 100 MG CAPSULE PO PRN (20:12)
[2020-11-14] MEDS: QUEtiapine Fumarate 100 MG TABLET PO SCH (20:12)
[2020-11-15] MEDS: Magnesium Oxide 400 MG TABLET PO SCH (08:17)
[2020-11-15] MEDS: Cyanocobalamin (B-12) 1,000 MCG TABLET PO SCH (08:17)
[2020-11-15] MEDS: Multivit/Ca/Min/Fe/FA 1 TAB TABLET PO SCH (08:18)
[2020-11-15] MEDS: Sennosides/Docusate Sodium TABLET PO SCH ×2 (08:18→20:28)
[2020-11-15] MEDS: polyethylene glycoL 3350 17 GM POWD.PACK PO SCH (08:18)
[2020-11-15] MEDS: carvediloL 6.25 MG TABLET PO SCH ×2 (08:18→16:29)
[2020-11-15] MEDS: lisinopriL 20 MG TABLET PO SCH (08:18)
[2020-11-15 08:52] LABS: Hemoglobin 14.7 g/dL (12.9-16.9); Mean Corpuscular HGB Conc 33.4 g/dL (31.6-35.5); Mean Corpuscular Hemoglobin 30.3 pg (28.0-33.3); Mean Corpuscular Volume 90.7 fL (83.0-100.0); Mean Platelet Volume 11.9 fL (9.4-12.4); Platelet Count 103 K/mcL (140-400); Red Blood Count 4.85 M/mcL (4.19-5.50); Red Cell Distribution Width 14.6 % (11.5-14.5); White Blood Count 7.1 K/mcL (4.3-11.1)
[2020-11-15 09:23] LABS: Alanine Aminotransferase 53 Units/L (7-52); Albumin 4.1 g/dL (3.5-5.7); Albumin/Globulin Ratio 1.5 (1.1-2.2); Alkaline Phosphatase 88 Units/L (34-104); Aspartate Amino Transferase 34 Units/L (13-39); BUN/Creatinine Ratio 14 (6-26); Bilirubin,Total 0.6 mg/dL (0.3-1.0); Blood Urea Nitrogen 19 mg/dL (8-23); Calcium 10.1 mg/dL (8.6-10.3); Carbon Dioxide 24 mEq/L (23-29); Chloride 102 mEq/L (98-107); Globulin 2.7 g/dL (2.4-3.5); Glucose 111 mg/dL (70-105); Osmolality,Calculated 281 (280-300); Potassium 4.1 mEq/L (3.5-5.1); Sodium 134 mEq/L (136-145); Total Protein 6.8 g/dL (6.4-8.9); eGFR For African Americans > 60 (> 60); eGFR For Non-African Americans 50 (> 60)
[2020-11-15] MEDS ORDERED: *HR* Warfarin 3 MG TABLET PO ONE (18:00)
[2020-11-15] MEDS: QUEtiapine Fumarate 100 MG TABLET PO SCH (20:30)
[2020-11-15] MEDS: Benzonatate 100 MG CAPSULE PO PRN (20:37)
[2020-11-16 05:42] LABS: INR 2.7
[2020-11-16 05:53] LABS: BUN/Creatinine Ratio 16 (6-26); Blood Urea Nitrogen 21 mg/dL (8-23); Calcium 9.5 mg/dL (8.6-10.3); Carbon Dioxide 22 mEq/L (23-29); Chloride 104 mEq/L (98-107); Glucose 91 mg/dL (70-105); Osmolality,Calculated 283 (280-300); Potassium 4.1 mEq/L (3.5-5.1); Sodium 135 mEq/L (136-145); eGFR For African Americans > 60 (> 60); eGFR For Non-African Americans 53 (> 60)
[2020-11-16] MEDS: carvediloL 6.25 MG TABLET PO SCH ×2 (09:08→18:21)
[2020-11-16] MEDS: lisinopriL 20 MG TABLET PO SCH (09:08)
[2020-11-16] MEDS: Multivit/Ca/Min/Fe/FA 1 TAB TABLET PO SCH (09:08)
[2020-11-16] MEDS: Cyanocobalamin (B-12) 1,000 MCG TABLET PO SCH (09:08)
[2020-11-16] MEDS: Fluticasone Propionate Nasal 50 MCG/SPRAY BOTTLE NS SCH (09:09)
[2020-11-16] MEDS: Magnesium Oxide 400 MG TABLET PO SCH (09:09)
[2020-11-16] MEDS: Sennosides/Docusate Sodium TABLET PO SCH ×2 (09:09→21:24)
[2020-11-16] MEDS: polyethylene glycoL 3350 17 GM POWD.PACK PO SCH (09:09)
[2020-11-16] MEDS ORDERED: 0.9 % Sodium Chloride 1,000 ML IV ONE (13:22)
[2020-11-16] MEDS ORDERED: *HR* Warfarin 3 MG TABLET PO ONE (18:00)
[2020-11-16] MEDS: levoFLOXacin 750 MG TABLET PO SCH (21:16)
[2020-11-16] MEDS: QUEtiapine Fumarate 100 MG TABLET PO SCH (21:16)
[2020-11-17] MEDS ORDERED: 0.9 % Sodium Chloride 1,000 ML IV ONE (00:42)
[2020-11-17 04:32] LABS: Bilirubin,Urine Negative (Negative); Blood,Urine Moderate (Negative); Clarity,Urine Clear (Clear); Color,Urine Yellow (Yellow); Glucose,Urine (UA) Normal (Normal); Ketones,Urine Negative (Negative); Leukocyte Esterase,Urine Small (Negative); Nitrite,Urine Negative (Negative); Protein,Urine Negative (Neg-Trace); Specific Gravity,Urine 1.015 (1.010-1.025); Urobilinogen,Urine Normal (Normal)
[2020-11-17 04:40] LABS: Bacteria,Urine Few per hpf (None-Few); Squamous Epithelial Cell,Urine Few per hpf (None-Few); WBC,Urine 30-50 per hpf (0-3)
[2020-11-17] MEDS: lisinopriL 20 MG TABLET PO SCH (09:03)
[2020-11-17] MEDS: carvediloL 6.25 MG TABLET PO SCH ×2 (09:13→18:06)
[2020-11-17] MEDS: Sennosides/Docusate Sodium TABLET PO SCH ×2 (09:14→20:36)
[2020-11-17] MEDS: Multivit/Ca/Min/Fe/FA 1 TAB TABLET PO SCH (09:14)
[2020-11-17] MEDS: Cyanocobalamin (B-12) 1,000 MCG TABLET PO SCH (09:14)
[2020-11-17] MEDS: polyethylene glycoL 3350 17 GM POWD.PACK PO SCH (09:14)
[2020-11-17] MEDS: Magnesium Oxide 400 MG TABLET PO SCH (09:14)
[2020-11-17] MEDS: Fluticasone Propionate Nasal 50 MCG/SPRAY BOTTLE NS SCH (09:14)
[2020-11-17 12:17] LABS: Calcium 9.7 mg/dL (8.6-10.3); Potassium 4.2 mEq/L (3.5-5.1)
[2020-11-17] MEDS ORDERED: *HR* Warfarin 4 MG TABLET PO ONE (18:00)
[2020-11-17] MEDS: 0.9 % Sodium Chloride 1,000 ML IVC SCH (20:35)
[2020-11-17] MEDS: levoFLOXacin 750 MG TABLET PO SCH (20:35)
[2020-11-17] MEDS: QUEtiapine Fumarate 100 MG TABLET PO SCH (20:36)
[2020-11-17] MEDS: Benzonatate 100 MG CAPSULE PO PRN (20:36)
[2020-11-17] MEDS ORDERED: levoFLOXacin 750 MG TABLET PO SCH (21:00)
[2020-11-18 07:17] LABS: Basophils % 0.5 %; Eosinophils # 0.4 K/mcL (0.0-0.6); Eosinophils % 8.5 %; Hematocrit 40.2 % (37.5-50.1); Hemoglobin 13.3 g/dL (12.9-16.9); Immature Granulocytes % 0.2 % (0-4); Lymphocytes # 1.1 K/mcL (0.6-4.6); Lymphocytes % 24.2 %; Mean Corpuscular HGB Conc 33.1 g/dL (31.6-35.5); Mean Corpuscular Hemoglobin 30.4 pg (28.0-33.3); Mean Corpuscular Volume 91.8 fL (83.0-100.0); Mean Platelet Volume 11.3 fL (9.4-12.4); Monocytes # 0.3 K/mcL (0.0-1.3); Monocytes % 6.7 %; Neutrophils # 2.6 K/mcL (1.6-8.9); Platelet Count 105 K/mcL (140-400); Red Blood Count 4.38 M/mcL (4.19-5.50); Red Cell Distribution Width 14.8 % (11.5-14.5); Segmented Neutrophils % 59.9 %; White Blood Count 4.3 K/mcL (4.3-11.1)
[2020-11-18 07:31] LABS: INR 3.6; Prothrombin Time 39.1 Seconds (9.4-12.1)
[2020-11-18 07:38] LABS: BUN/Creatinine Ratio 15 (6-26); Blood Urea Nitrogen 21 mg/dL (8-23); Calcium 9.4 mg/dL (8.6-10.3); Carbon Dioxide 25 mEq/L (23-29); Chloride 106 mEq/L (98-107); Glucose 115 mg/dL (70-105); Osmolality,Calculated 290 (280-300); Potassium 4.1 mEq/L (3.5-5.1); Sodium 138 mEq/L (136-145); eGFR For African Americans > 60 (> 60); eGFR For Non-African Americans 50 (> 60)
[2020-11-18] MEDS: Cyanocobalamin (B-12) 1,000 MCG TABLET PO SCH (08:17)
[2020-11-18] MEDS: Magnesium Oxide 400 MG TABLET PO SCH (08:17)
[2020-11-18] MEDS: Multivit/Ca/Min/Fe/FA 1 TAB TABLET PO SCH (08:17)
[2020-11-18] MEDS: carvediloL 6.25 MG TABLET PO SCH ×2 (08:18→16:47)
[2020-11-18] MEDS: lisinopriL 20 MG TABLET PO SCH (08:18)
[2020-11-18] MEDS: Sennosides/Docusate Sodium TABLET PO SCH ×2 (08:19→19:59)
[2020-11-18] MEDS: polyethylene glycoL 3350 17 GM POWD.PACK PO SCH (08:19)
[2020-11-18] MEDS: Fluticasone Propionate Nasal 50 MCG/SPRAY BOTTLE NS SCH (08:19)
[2020-11-18] MEDS: levoFLOXacin 750 MG TABLET PO SCH (20:07)
[2020-11-18] MEDS: QUEtiapine Fumarate 100 MG TABLET PO SCH (20:07)
[2020-11-19 04:54] LABS: Prothrombin Time 32.9 Seconds (9.4-12.1)
[2020-11-19 05:06] LABS: BUN/Creatinine Ratio 16 (6-26); Blood Urea Nitrogen 20 mg/dL (8-23); Calcium 9.7 mg/dL (8.6-10.3); Carbon Dioxide 23 mEq/L (23-29); Chloride 108 mEq/L (98-107); Glucose 96 mg/dL (70-105); Osmolality,Calculated 290 (280-300); Potassium 4.2 mEq/L (3.5-5.1); Sodium 139 mEq/L (136-145); eGFR For African Americans > 60 (> 60); eGFR For Non-African Americans 56 (> 60)
[2020-11-19] MEDS: Multivit/Ca/Min/Fe/FA 1 TAB TABLET PO SCH (07:58)
[2020-11-19] MEDS: lisinopriL 20 MG TABLET PO SCH (07:58)
[2020-11-19] MEDS: Sennosides/Docusate Sodium TABLET PO SCH ×2 (07:58→20:04)
[2020-11-19] MEDS: Cyanocobalamin (B-12) 1,000 MCG TABLET PO SCH (07:58)
[2020-11-19] MEDS: polyethylene glycoL 3350 17 GM POWD.PACK PO SCH (07:58)
[2020-11-19] MEDS: Magnesium Oxide 400 MG TABLET PO SCH (07:58)
[2020-11-19] MEDS: carvediloL 6.25 MG TABLET PO SCH ×2 (07:58→17:30)
[2020-11-19] MEDS: Fluticasone Propionate Nasal 50 MCG/SPRAY BOTTLE NS SCH (07:59)
[2020-11-19] MEDS ORDERED: *HR* Warfarin 3 MG TABLET PO ONE (18:00)
[2020-11-19] MEDS: Benzonatate 100 MG CAPSULE PO PRN (20:04)
[2020-11-19] MEDS: levoFLOXacin 750 MG TABLET PO SCH (20:04)
[2020-11-19] MEDS: QUEtiapine Fumarate 100 MG TABLET PO SCH (20:04)
[2020-11-20 04:53] LABS: INR 2.3; Prothrombin Time 25.7 Seconds (9.4-12.1)
[2020-11-20] MEDS: 0.9 % Sodium Chloride 1,000 ML IVC SCH (07:47)
[2020-11-20] MEDS: Sennosides/Docusate Sodium TABLET PO SCH ×2 (08:16→20:10)
[2020-11-20] MEDS: polyethylene glycoL 3350 17 GM POWD.PACK PO SCH (08:16)
[2020-11-20] MEDS: Fluticasone Propionate Nasal 50 MCG/SPRAY BOTTLE NS SCH (08:17)
[2020-11-20] MEDS: Cyanocobalamin (B-12) 1,000 MCG TABLET PO SCH (08:21)
[2020-11-20] MEDS: Magnesium Oxide 400 MG TABLET PO SCH (08:21)
[2020-11-20] MEDS: lisinopriL 20 MG TABLET PO SCH (08:21)
[2020-11-20] MEDS: carvediloL 6.25 MG TABLET PO SCH (08:21)
[2020-11-20] MEDS: Multivit/Ca/Min/Fe/FA 1 TAB TABLET PO SCH (08:21)
[2020-11-20] MEDS ORDERED: *HR* Warfarin 3 MG TABLET PO ONE (18:00)
[2020-11-20] MEDS: Benzonatate 100 MG CAPSULE PO PRN (20:10)
[2020-11-20] MEDS: QUEtiapine Fumarate 25 MG TABLET PO SCH (20:10)
[2020-11-20] MEDS: levoFLOXacin 750 MG TABLET PO SCH (20:10)
[2020-11-21 05:02] LABS: Basophils % 0.7 %; Eosinophils # 0.3 K/mcL (0.0-0.6); Hematocrit 38.4 % (37.5-50.1); Hemoglobin 13.1 g/dL (12.9-16.9); Immature Granulocytes % 0.5 % (0-4); Lymphocytes # 1.5 K/mcL (0.6-4.6); Lymphocytes % 35.8 %; Mean Corpuscular HGB Conc 34.1 g/dL (31.6-35.5); Mean Corpuscular Hemoglobin 30.6 pg (28.0-33.3); Mean Corpuscular Volume 89.7 fL (83.0-100.0); Mean Platelet Volume 10.4 fL (9.4-12.4); Monocytes # 0.4 K/mcL (0.0-1.3); Monocytes % 8.9 %; Platelet Count 117 K/mcL (140-400); Red Blood Count 4.28 M/mcL (4.19-5.50); Red Cell Distribution Width 14.7 % (11.5-14.5); Segmented Neutrophils % 47.1 %; White Blood Count 4.3 K/mcL (4.3-11.1)
[2020-11-21 05:06] LABS: INR 2.2; Prothrombin Time 24.2 Seconds (9.4-12.1)
[2020-11-21 05:20] LABS: BUN/Creatinine Ratio 13 (6-26); Blood Urea Nitrogen 17 mg/dL (8-23); Calcium 9.8 mg/dL (8.6-10.3); Carbon Dioxide 24 mEq/L (23-29); Chloride 107 mEq/L (98-107); Glucose 96 mg/dL (70-105); Osmolality,Calculated 289 (280-300); Potassium 3.9 mEq/L (3.5-5.1); Sodium 139 mEq/L (136-145); eGFR For African Americans > 60 (> 60); eGFR For Non-African Americans 54 (> 60)
[2020-11-21] MEDS: Fluticasone Propionate Nasal 50 MCG/SPRAY BOTTLE NS SCH (10:14)
[2020-11-21] MEDS: Multivit/Ca/Min/Fe/FA 1 TAB TABLET PO SCH (10:14)
[2020-11-21] MEDS: Cyanocobalamin (B-12) 1,000 MCG TABLET PO SCH (10:14)
[2020-11-21] MEDS: Sennosides/Docusate Sodium TABLET PO SCH ×2 (10:14→22:48)
[2020-11-21] MEDS: polyethylene glycoL 3350 17 GM POWD.PACK PO SCH (10:15)
[2020-11-21] MEDS: Magnesium Oxide 400 MG TABLET PO SCH (10:15)
[2020-11-21] MEDS ORDERED: *HR* Warfarin 3 MG TABLET PO ONE (18:00)
[2020-11-21] MEDS: levoFLOXacin 750 MG TABLET PO SCH (22:45)
[2020-11-21] MEDS: QUEtiapine Fumarate 25 MG TABLET PO SCH ×2 (22:48→22:51)
[2020-11-22] MEDS: Magnesium Oxide 400 MG TABLET PO SCH (08:06)
[2020-11-22] MEDS: Multivit/Ca/Min/Fe/FA 1 TAB TABLET PO SCH (08:06)
[2020-11-22] MEDS: Fluticasone Propionate Nasal 50 MCG/SPRAY BOTTLE NS SCH (08:06)
[2020-11-22] MEDS: Sennosides/Docusate Sodium TABLET PO SCH ×2 (08:06→20:15)
[2020-11-22] MEDS: Cyanocobalamin (B-12) 1,000 MCG TABLET PO SCH (08:06)
[2020-11-22] MEDS: polyethylene glycoL 3350 17 GM POWD.PACK PO SCH (08:06)
[2020-11-22 08:19] LABS: INR 2.2; Prothrombin Time 24.1 Seconds (9.4-12.1)
[2020-11-22] MEDS: carvediloL 6.25 MG TABLET PO SCH (17:07)
[2020-11-22] MEDS ORDERED: *HR* Warfarin 3 MG TABLET PO ONE (18:00)
[2020-11-22] MEDS: levoFLOXacin 750 MG TABLET PO SCH (20:15)
[2020-11-22] MEDS: QUEtiapine Fumarate 25 MG TABLET PO SCH (20:15)
[2020-11-23 04:49] LABS: INR 2.5; Prothrombin Time 27.3 Seconds (9.4-12.1)
[2020-11-23] MEDS: Sennosides/Docusate Sodium TABLET PO SCH ×2 (08:44→20:02)
[2020-11-23] MEDS: Magnesium Oxide 400 MG TABLET PO SCH (08:44)
[2020-11-23] MEDS: Multivit/Ca/Min/Fe/FA 1 TAB TABLET PO SCH (08:44)
[2020-11-23] MEDS: carvediloL 6.25 MG TABLET PO SCH ×2 (08:44→17:39)
[2020-11-23] MEDS: Fluticasone Propionate Nasal 50 MCG/SPRAY BOTTLE NS SCH (08:44)
[2020-11-23] MEDS: polyethylene glycoL 3350 17 GM POWD.PACK PO SCH (08:44)
[2020-11-23] MEDS: Cyanocobalamin (B-12) 1,000 MCG TABLET PO SCH (08:44)
[2020-11-23] MEDS ORDERED: *HR* Warfarin 5 MG TABLET PO ONE (18:00)
[2020-11-23] MEDS: levoFLOXacin 750 MG TABLET PO SCH (20:02)
[2020-11-23] MEDS: QUEtiapine Fumarate 25 MG TABLET PO SCH (20:02)
[2020-11-24 07:32] LABS: INR 2.6; Prothrombin Time 28.5 Seconds (9.4-12.1)
[2020-11-24 07:44] LABS: Calcium 9.6 mg/dL (8.6-10.3); Potassium 3.8 mEq/L (3.5-5.1)
[2020-11-24] MEDS: Magnesium Oxide 400 MG TABLET PO SCH (08:37)
[2020-11-24] MEDS: Cyanocobalamin (B-12) 1,000 MCG TABLET PO SCH (08:37)
[2020-11-24] MEDS: Multivit/Ca/Min/Fe/FA 1 TAB TABLET PO SCH (08:37)
[2020-11-24] MEDS: polyethylene glycoL 3350 17 GM POWD.PACK PO SCH (08:37)
[2020-11-24] MEDS: carvediloL 6.25 MG TABLET PO SCH ×2 (08:37→17:51)
[2020-11-24] MEDS: lisinopriL 20 MG TABLET PO SCH (08:37)
[2020-11-24] MEDS: Sennosides/Docusate Sodium TABLET PO SCH ×2 (08:37→20:55)
[2020-11-24] MEDS: Fluticasone Propionate Nasal 50 MCG/SPRAY BOTTLE NS SCH (08:38)
[2020-11-24] MEDS ORDERED: *HR* Warfarin 5 MG TABLET PO ONE (18:00)
[2020-11-24] MEDS: levoFLOXacin 750 MG TABLET PO SCH (20:54)
[2020-11-24] MEDS: QUEtiapine Fumarate 25 MG TABLET PO SCH (20:54)
[2020-11-25 07:20] LABS: INR 2.6; Prothrombin Time 28.6 Seconds (9.4-12.1)
[2020-11-25] MEDS: Multivit/Ca/Min/Fe/FA 1 TAB TABLET PO SCH (09:32)
[2020-11-25] MEDS: Magnesium Oxide 400 MG TABLET PO SCH (09:32)
[2020-11-25] MEDS: lisinopriL 20 MG TABLET PO SCH (09:32)
[2020-11-25] MEDS: carvediloL 6.25 MG TABLET PO SCH ×2 (09:32→16:10)
[2020-11-25] MEDS: Fluticasone Propionate Nasal 50 MCG/SPRAY BOTTLE NS SCH (09:33)
[2020-11-25] MEDS: Cyanocobalamin (B-12) 1,000 MCG TABLET PO SCH (09:33)
[2020-11-25] MEDS: Sennosides/Docusate Sodium TABLET PO SCH ×2 (09:33→20:50)
[2020-11-25] MEDS: polyethylene glycoL 3350 17 GM POWD.PACK PO SCH (09:33)
[2020-11-25] MEDS ORDERED: *HR* Warfarin 5 MG TABLET PO ONE (18:00)
[2020-11-25] MEDS: QUEtiapine Fumarate 25 MG TABLET PO SCH (20:50)
[2020-11-25] MEDS: levoFLOXacin 750 MG TABLET PO SCH (20:50)
[2020-11-26 05:26] LABS: Basophils % 0.6 %; Eosinophils # 0.2 K/mcL (0.0-0.6); Eosinophils % 4.6 %; Hematocrit 40.3 % (37.5-50.1); Hemoglobin 13.7 g/dL (12.9-16.9); Immature Granulocytes % 0.2 % (0-4); Lymphocytes # 1.4 K/mcL (0.6-4.6); Mean Corpuscular Hemoglobin 30.8 pg (28.0-33.3); Mean Corpuscular Volume 90.6 fL (83.0-100.0); Mean Platelet Volume 10.6 fL (9.4-12.4); Monocytes # 0.4 K/mcL (0.0-1.3); Monocytes % 8.9 %; Neutrophils # 2.9 K/mcL (1.6-8.9); Platelet Count 121 K/mcL (140-400); Red Blood Count 4.45 M/mcL (4.19-5.50); Red Cell Distribution Width 15.1 % (11.5-14.5); Segmented Neutrophils % 57.7 %
[2020-11-26 05:29] LABS: INR 2.4; Prothrombin Time 26.6 Seconds (9.4-12.1)
[2020-11-26 05:41] LABS: Alanine Aminotransferase 24 Units/L (7-52); Albumin 3.6 g/dL (3.5-5.7); Albumin/Globulin Ratio 1.6 (1.1-2.2); Alkaline Phosphatase 75 Units/L (34-104); Aspartate Amino Transferase 17 Units/L (13-39); BUN/Creatinine Ratio 18 (6-26); Bilirubin,Direct 0.1 mg/dL (0.0-0.2); Bilirubin,Indirect 0.4 mg/dL (0.0-1.0); Bilirubin,Total 0.5 mg/dL (0.3-1.0); Blood Urea Nitrogen 25 mg/dL (8-23); Calcium 9.6 mg/dL (8.6-10.3); Carbon Dioxide 22 mEq/L (23-29); Chloride 108 mEq/L (98-107); Globulin 2.2 g/dL (2.4-3.5); Glucose 110 mg/dL (70-105); Osmolality,Calculated 291 (280-300); Sodium 138 mEq/L (136-145); Total Protein 5.8 g/dL (6.4-8.9); eGFR For African Americans > 60 (> 60); eGFR For Non-African Americans 51 (> 60)
[2020-11-26] MEDS: lisinopriL 20 MG TABLET PO SCH (08:44)
[2020-11-26] MEDS: carvediloL 6.25 MG TABLET PO SCH ×2 (08:44→18:01)
[2020-11-26] MEDS: Fluticasone Propionate Nasal 50 MCG/SPRAY BOTTLE NS SCH (08:45)
[2020-11-26] MEDS: Sennosides/Docusate Sodium TABLET PO SCH ×2 (08:45→20:05)
[2020-11-26] MEDS: Magnesium Oxide 400 MG TABLET PO SCH (08:45)
[2020-11-26] MEDS: polyethylene glycoL 3350 17 GM POWD.PACK PO SCH (08:45)
[2020-11-26] MEDS: Multivit/Ca/Min/Fe/FA 1 TAB TABLET PO SCH (08:45)
[2020-11-26] MEDS: Cyanocobalamin (B-12) 1,000 MCG TABLET PO SCH (08:48)
[2020-11-26] MEDS ORDERED: *HR* Warfarin 3 MG TABLET PO ONE (18:00)
[2020-11-26] MEDS: QUEtiapine Fumarate 25 MG TABLET PO SCH (20:06)
[2020-11-26] MEDS: levoFLOXacin 750 MG TABLET PO SCH (20:06)
[2020-11-26] MEDS: Benzonatate 100 MG CAPSULE PO PRN (20:09)
[2020-11-27 04:58] LABS: INR 2.6; Prothrombin Time 28.4 Seconds (9.4-12.1)
[2020-11-27] MEDS: Sennosides/Docusate Sodium TABLET PO SCH ×2 (08:40→21:58)
[2020-11-27] MEDS: Magnesium Oxide 400 MG TABLET PO SCH (08:40)
[2020-11-27] MEDS: Cyanocobalamin (B-12) 1,000 MCG TABLET PO SCH (08:40)
[2020-11-27] MEDS: Multivit/Ca/Min/Fe/FA 1 TAB TABLET PO SCH (08:40)
[2020-11-27] MEDS: polyethylene glycoL 3350 17 GM POWD.PACK PO SCH (08:44)
[2020-11-27] MEDS: Fluticasone Propionate Nasal 50 MCG/SPRAY BOTTLE NS SCH (08:44)
[2020-11-27] MEDS: carvediloL 6.25 MG TABLET PO SCH (10:38)
[2020-11-27] MEDS ORDERED: *HR* Warfarin 5 MG TABLET PO ONE (18:00)
[2020-11-27] MEDS: Benzonatate 100 MG CAPSULE PO PRN (20:40)
[2020-11-27] MEDS ORDERED: QUEtiapine Fumarate 100 MG TABLET PO SCH (21:00)
[2020-11-28 04:30] LABS: INR 2.5
[2020-11-28 07:36] VITALS: BP 125/85
[2020-11-28] MEDS: Fluticasone Propionate Nasal 50 MCG/SPRAY BOTTLE NS SCH (08:22)
[2020-11-28] MEDS: polyethylene glycoL 3350 17 GM POWD.PACK PO SCH (08:22)
[2020-11-28] MEDS: Sennosides/Docusate Sodium TABLET PO SCH (08:22)
[2020-11-28] MEDS: Multivit/Ca/Min/Fe/FA 1 TAB TABLET PO SCH (08:22)
[2020-11-28] MEDS: Magnesium Oxide 400 MG TABLET PO SCH (08:22)
[2020-11-28] MEDS: Cyanocobalamin (B-12) 1,000 MCG TABLET PO SCH (08:22)
[2020-11-28] MEDS ORDERED: *HR* Warfarin 5 MG TABLET PO ONE (18:00)
== END 2020-11-28 14:00 | disposition home health service (06) | DRG 57 ==
LOC: INPGRE 10-25 20:04
PROVIDERS: ADMIT Family Medicine; ATTEND Family Medicine